=== PATIENT | female | born 1995 | race Caucasian/White ===

== ENCOUNTER 2017-01-31 17:00 | Emergency (ER) | payer MEDICAID, OTHER ==
[2017-01-31] MEDS ORDERED: SODIUM CHLORIDE 0.9% 1,000 ML IV ONE (17:33)
[2017-01-31] MEDS ORDERED: KETOROLAC 60 MG/2 ML VIAL IVP STA (17:49)
[2017-01-31] MEDS ORDERED: DEXAMETHASONE 10 MG/ML VIAL IVP STA (17:49)
[2017-01-31] MEDS ORDERED: KETOROLAC 30 MG/ML VIAL ONE (17:52)
[2017-01-31] MEDS ORDERED: DEXAMETHASONE 10 MG/ML VIAL ONE (17:52)
== END 2017-01-31 19:27 | disposition home or self-care (01) ==
DX: K90.0 Celiac disease (principal); R42 Dizziness and giddiness; J45.909 Unspecified asthma, uncomplicated

== ENCOUNTER 2017-05-22 15:15 | Outpatient (CLI) | payer MEDICAID | END 2017-05-22 15:16 | disposition home or self-care (01) | LOC: LAB.R 15:15 | PROVIDERS: ATTEND Family Medicine | DX: N39.0 Urinary tract infection, site not specified (principal) | CPT/HCPCS: 87086; 87480; 87491; 87510; 87591; 87660 ==

== ENCOUNTER 2017-09-19 12:17 | Emergency (ER) | payer OTHER, MEDICAID ==
--- NOTE | 2017-09-19 14:25 | XRAY Preliminary Report ---
Exam: XR WRIST 3 VIEW RT IMPRESSION: Normal wrist radiography. [facility] SITE ID: [id number]
--- NOTE | 2017-09-19 14:28 | XRAY Report ---
EXAM: RIGHT WRIST RADIOGRAPHY EXAM DATE: 09/19/2017 02:18 PM. CLINICAL HISTORY: Fall and pain . COMPARISON: None. TECHNIQUE: 3 views. FINDINGS: Bones: Normal. No fractures or bone lesions. Joints: Normal. No subluxations. Soft Tissues: Unremarkable. IMPRESSION: Normal wrist radiography. [facility] Referring Provider Line: [phone] SITE ID: [id number]
--- NOTE | 2017-09-19 15:07 | ED Physician Documentation ---
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 has pain with movement of the right wrist.) Review of Systems Constitutional: denies: Fever, Chills Skin: denies: Rash, Lesions Musculoskeletal: reports: Joint pain (right wrist). 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 HEENT: None Psych: None, Depression Musculoskeletal: None Derm: None Other Past Medical History: Celiac disease - Past Surgical History Past Surgical History: Yes General: Colonoscopy, EGD Ortho: Other /PROFESSIONAL HOUSING CONSULTANT: Dilation and currettage - Present Medications Home Medications: Ambulatory Orders Medication Instructions Recorded Confirmed Albuterol Sulf [Ventolin Hfa 01/31/17 Inhaler] Implanon Implant 01/31/17 01/31/17 Triamcinolone 0.1% Oint [Kenalog 01/31/17 01/31/17 0.1% Oint] Sertraline [Zoloft] 25 mg PO DAILY 09/19/17 09/19/17 - Allergies Allergies/Adverse Reactions: Allergies Allergy/AdvReac Type Severity Reaction Status Date / Time gluten Allergy Unknown Unknown Verified 09/19/17 12:36 acetaminophen Allergy Rash Verified 09/19/17 12:36 [From Tylenol-Codeine #3] codeine phosphate * Allergy Rash Verified 09/19/17 12:36 [From Tylenol-Codeine #3] sumatriptan Allergy Unknown Verified 09/19/17 12:36 venlafaxine Allergy Unknown Verified 09/19/17 12:36 Sulfa (Sulfonamide AdvReac Mild Rash Verified 09/19/17 12:36 Antibiotics) - Social History Does the pt smoke?: No Smoking Status: Never smoker Does the pt drink ETOH?: No Does the pt have substance abuse?: No - Immunizations Immunizations are current?: Yes - POLST Patient has POLST: No PD ED PE NORMAL - Vitals Vital signs reviewed: Yes - General General: Alert and oriented X 3, No acute distress, Well developed/nourished - Cardiac Cardiac: Strong equal pulses - Derm Derm: Normal color, Warm and dry, No rash - Extremities Extremities: No deformity, No edema. No: No tenderness to palpate (TTP over the palmar aspect of the right wrist with decreased ROM ) - Neuro Neuro: Alert and oriented X 3, Other (sensation intact to the right hand. ) Results - Vitals Vitals: Vital Signs - 24 hr 09/19/17 12:31 Temperature 37.4 C Heart Rate 82 Respiratory 16 Rate Blood Pressure 123/82 H O2 Saturation 80 L Oxygen O2 Source Room air - Rads (name of study) hand X-ray Radiology: Final report received PD MEDICAL DECISION MAKING - ED course Complexity details: d/w patient ED course: no fracture or dislocation, no bruising. N/V intact. no need for splint. Departure - Departure Disposition: 01 Home, Self Care Clinical Impression: Contusion of wrist, right Condition: Good Instructions: ED RICE Follow-Up: primary, care provider [Other] Comments: Return to the ER for any new or worsening symptoms. Forms: Activity restrictions
[2017-09-19 15:21] VITALS: BP 128/88
== END 2017-09-19 15:20 | disposition home or self-care (01) ==
LOC: ED 12:17
DX: S60.211A Contusion of right wrist, initial encounter (principal); W01.0XXA Fall on same level from slipping, tripping and stumbling without subsequent striking against object, initial encounter; Y92.89 Other specified places as the place of occurrence of the external cause; Y99.8 Other external cause status
CPT/HCPCS: 1040M; 73110; 99282

== ENCOUNTER 2018-01-29 16:43 | Emergency (ER) | payer BC, MEDICAID ==
[2018-01-29] MEDS ORDERED: HYDROcod/ACETAM 5/325 MG TABLET PO STA (17:03)
--- NOTE | 2018-01-29 17:06 | ED Physician Documentation ---
PD HPI ABD PAIN - Stated complaint Stated Complaint: ABD PAIN - Chief complaint Chief Complaint: Abd Pain - History obtained from History obtained from: Patient - History of Present Illness Timing - onset: Other (She has a H/O or recurrent ovarian cysts. Had her usual cyst pain 4 days ago and went away. But recurred today and it is somewhat atypical with no bleeding and slightly worse than normal. It is in the right lower quadrant. 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 HEENT: None Psych: None, Depression Musculoskeletal: None Derm: None - Past Surgical History Past Surgical History: Yes General: Colonoscopy, EGD Ortho: Other /FIELD AUDITOR: Dilation and currettage - Present Medications Home Medications: Ambulatory Orders Medication Instructions Recorded Confirmed Albuterol Sulf [Ventolin Hfa 01/31/17 Inhaler] Implanon Implant 01/31/17 01/31/17 Triamcinolone 0.1% Oint [Kenalog 01/31/17 01/31/17 0.1% Oint] Sertraline [Zoloft] 25 mg PO DAILY 09/19/17 09/19/17 HYDROcod/ACETAM 5/325 [Gabbs 5/325] 1 - 2 ea PO Q6H PRN #15 tablet 01/29/18 - Allergies Allergies/Adverse Reactions: Allergies Allergy/AdvReac Type Severity Reaction Status Date / Time gluten Allergy Unknown Unknown Verified 09/19/17 12:36 acetaminophen Allergy Rash Verified 09/19/17 12:36 [From Tylenol-Codeine #3] codeine phosphate * Allergy Rash Verified 09/19/17 12:36 [From Tylenol-Codeine #3] sumatriptan Allergy Unknown Verified 09/19/17 12:36 venlafaxine Allergy Unknown Verified 09/19/17 12:36 Sulfa (Sulfonamide AdvReac Mild Rash Verified 09/19/17 12:36 Antibiotics) - Social History Does the pt smoke?: No Smoking Status: Never smoker Does the pt drink ETOH?: No Does the pt have substance abuse?: No - Immunizations Immunizations are current?: Yes - POLST Patient has POLST: No PD ED PE NORMAL - Vitals Vital signs reviewed: Yes - General General: Alert and oriented X 3, No acute distress - Cardiac Cardiac: RRR, No murmur - Respiratory Respiratory: No respiratory distress, Clear bilaterally - Abdomen Abdomen: Normal bowel sounds, Soft, Other (Mild right pelvic tenderness without surgical sign or Rovsing sign.) - Neuro Neuro: Alert and oriented X 3, Normal speech - Psych Psych: Normal mood, Normal affect Results - Vitals Vitals: Vital Signs - 24 hr 01/29/18 01/29/18 16:53 19:53 Temperature 36.8 C Heart Rate 72 71 Respiratory 18 17 Rate Blood Pressure 135/90 H 119/84 H O2 Saturation 100 100 Oxygen O2 Source Room air - Labs Labs: Laboratory Tests 01/29/18 01/29/18 01/29/18 17:15 17:15 17:29 WBC 8.9 RBC 4.17 L Hgb 12.1 Hct 35.4 L MCV 84.7 MCH 29.0 MCHC 34.3 RDW 13.2 Plt Count 267 MPV 8.6 Neut # 6.2 Lymph # 1.8 Clarke # 0.6 Eos # 0.2 Baso # 0.0 Absolute Nucleated RBC 0.00 Nucleated RBC % 0.0 Sodium 133 L Potassium 3.5 Chloride 101 Carbon Dioxide 24 Anion Gap 8.0 BUN 6 Creatinine 0.7 Estimated GFR (MDRD) 105 Glucose 99 Calcium 8.7 Total Bilirubin 0.7 AST 23 ALT 17 Alkaline Phosphatase 55 Total Protein 7.2 Albumin 4.1 Globulin 3.1 Albumin/Globulin Ratio 1.3 Lipase 22 Urine Color YELLOW Urine Clarity CLEAR Urine pH 5.5 Ur Specific [place] 1.010 Urine Protein NEGATIVE Urine Glucose (UA) NEGATIVE Urine Ketones NEGATIVE Urine Occult Blood NEGATIVE Urine Nitrite NEGATIVE Urine Bilirubin NEGATIVE Urine Urobilinogen 0.2 (NORMAL) Ur Leukocyte Esterase NEGATIVE Ur Microscopic Review NOT INDICATED Urine Culture Comments NOT INDICATED Urine HCG, Qual NEGATIVE - Rads (name of study) Pelvic Sono Radiology: EMP read contemporaneously (Lg Left ov cyst, no FF) PD MEDICAL DECISION MAKING - ED course ED course: 22-year-old woman with pelvic pain, found to have large recurrent left ovarian cysts, sudden onset and lack of leukocytosis argues against other etiologies. Departure - Departure Disposition: 01 Home, Self Care Clinical Impression: Abdominal pain Qualifiers: Abdominal location: lower abdomen, unspecified Qualified Code(s): R10.30 - Lower abdominal pain, unspecified Cyst of ovary Qualifiers: Laterality: left Qualified Code(s): N83.202 - Unspecified ovarian cyst, left side Condition: Good Record reviewed to determine appropriate education?: Yes Instructions: ED Pelvic Pain [facility] Follow-Up: [facility] [Provider Group] - Within 1 week Prescriptions: HYDROcod/ACETAM 5/325 [Gabbs 5/325] 1 - 2 ea PO Q6H PRN #15 tablet PRN Reason: Pain Comments: Return if worsening or if new symptoms develop, especially fever. Follow-up with the tree chipper listed on the form, next available appointment. Do not drink or drive while taking narcotic pain medication. Note that many narcotic pain relievers also contain Tylenol/acetaminophen. Please ensure that your total dose of acetaminophen from all sources does not exceed 3 g (3000 mg) per day. You may get constipated while on this medication. Take a stool softener such as Colace twice a day while you are on it. Also add an [id number] laxative such as senna or MiraLAX on any day that you do not have a bowel movement. If you received a narcotic pain medication or sedative while in the emergency department, do not drive for the next 24 hours.
[2018-01-29 17:20] LABS: BASOPHILS % (AUTO) 0.4 %; EOSINOPHILS # (AUTO) 0.2 10^3/uL (0.0-0.7); EOSINOPHILS % (AUTO) 1.9 %; HGB - HEMOGLOBIN 12.1 g/dL (12.0-16.0); LYMPHOCYTES # (AUTO) 1.8 10^3/uL (1.5-3.5); LYMPHOCYTES % (AUTO) 20.3 %; MEAN CORPUSCULAR HGB CONC 34.3 g/dL (32.0-36.0); MEAN CORPUSCULAR VOLUME 84.7 fL (81.0-99.0); MEAN PLATELET VOLUME 8.6 fL (7.9-10.8); MONOCYTES # (AUTO) 0.6 10^3/uL (0.0-1.0); MONOCYTES % (AUTO) 7.2 %; NEUTROPHILS # (AUTO) 6.2 10^3/uL (1.5-6.6); NEUTROPHILS % (AUTO) 70.2 %; PLT - PLATELET COUNT 267 10^3/uL (130-450); RED BLOOD COUNT 4.17 10^6/uL (4.20-5.40); RED CELL DISTRIBUTION WIDTH 13.2 % (12.0-15.0); WHITE BLOOD COUNT 8.9 x10^3/uL (4.8-10.8)
[2018-01-29 17:33] LABS: ALBUMIN 4.1 g/dL (3.2-5.5); ALBUMIN/GLOBULIN RATIO 1.3 (1.0-2.2); BILIRUBIN,TOTAL 0.7 mg/dL (0.2-1.0); CALCIUM 8.7 mg/dL (8.5-10.3); CREATININE 0.7 mg/dL (0.4-1.0); TOTAL PROTEIN 7.2 g/dL (6.7-8.2)
[2018-01-29 17:34] LABS: BILIRUBIN,URINE NEGATIVE (NEGATIVE); GLUCOSE, URINE (UA) NEGATIVE (NEGATIVE); KETONES,URINE (UA) NEGATIVE (NEGATIVE); LEUKOCYTE ESTERASE, URINE NEGATIVE (NEGATIVE); NITRITE,URINE NEGATIVE (NEGATIVE); OCCULT BLOOD,URINE NEGATIVE (NEGATIVE); PH,URINE 5.5 PH (5.0-7.5); PROTEIN,URINE NEGATIVE (NEGATIVE); UROBILINOGEN,URINE 0.2 (NORMAL) E.U./dL (NORMAL)
[2018-01-29 17:38] LABS: CLARITY,URINE CLEAR (CLEAR)
[2018-01-29 17:39] LABS: HCG UR QUAL NEGATIVE
--- NOTE | 2018-01-29 19:50 | Ultrasound Preliminary Report ---
Exam: US PELVIC W/TRANSVAG+DOPPLER COMP IMPRESSION: 1. Normal appearance of right ovary. 2. No abnormal fluid in the pelvis. 3. The left ovary remains enlarged and a dominant cyst measuring 6.6 x 2.3 x 5.2 cm has increased in size compared to previous ultrasound of 02/09/2016. [facility] SITE ID: [id number]
--- NOTE | 2018-01-29 19:51 | Ultrasound Report ---
EXAM: PELVIC ULTRASOUND EXAM DATE: 01/29/2018 06:11 PM. CLINICAL HISTORY: RLQ pain. COMPARISON: 02/09/2016. TECHNIQUE: Realtime transabdominal pelvic scan performed to identify the uterus and adnexa and as an overview of other pelvic structures, followed by transvaginal scan to provide greater detail of the u terus and adnexa, with static image documentation. FINDINGS: Uterus: 9.1 x 3.3 x 4.8 cm, volume 75 cc. Anteverted position. Normal overall size and echotexture. Masses: None. Endometrium: 3.2 mm. Normal. Cervix: Unremarkable. Right Ovary: 3.3 x 1.7 x 1.7 cm, volume 4.9 cc. Normal echotexture and blood flow. Left Ovary: 8.1 x 2.6 x 6.0 cm, volume 66 cc. There is a dominant anechoic ovoid cyst in the left ova ry measuring 6.6 x 2.3 x 5.2 cm. On previous ultrasound this measured 5.0 x 2.3 x 2.9 cm. Blood flow present in left ovary on Doppler. Free Fluid: None. Other: None. IMPRESSION: 1. Normal appearance of right ovary. 2. No abnormal fluid in the pelvis. 3. The left ovary remains enlarged and a dominant cyst measuring 6.6 x 2.3 x 5.2 cm has increased in size compared to previous ultrasound of 02/09/2016. [facility] Referring Provider Line: [phone] SITE ID: [id number]
[2018-01-29 19:53] VITALS: BP 119/84
[2018-01-29] MEDS ORDERED: KETOROLAC 60 MG/2 ML VIAL IM STA (19:58)
== END 2018-01-29 20:12 | disposition home or self-care (01) ==
LOC: ED 16:43
DX: R10.30 Lower abdominal pain, unspecified (principal); N83.202 Unspecified ovarian cyst, left side; R10.2 Pelvic and perineal pain
CPT/HCPCS: 36415; 76830; 76856; 80053; 81003; 81025; 83690; 85025; 93975; 96372; 99283; A9270; 81001; 87086

== ENCOUNTER 2018-02-14 09:28 | Outpatient (CLI) | payer BC ==
[2018-02-14 10:05] LABS: HCG UR QUAL NEGATIVE
== END 2018-02-14 09:29 | disposition home or self-care (01) ==
LOC: LAB 09:28
PROVIDERS: ATTEND Physician Assistant Medical
DX: Z01.812 Encounter for preprocedural laboratory examination (principal); N83.202 Unspecified ovarian cyst, left side
CPT/HCPCS: 81025

== ENCOUNTER 2018-02-15 06:25 | Day surgery (SDC) | payer BC ==
--- NOTE | 2018-02-14 12:41 | PREOP HISTORY & PHYSICAL ---
DATE OF SURGERY 02/15/2018 Physician: Yanci Melton DO IDENTIFICATION: A 22-year-old G1, P0-0-1-0. HISTORY OF PRESENT ILLNESS: The patient presents today for her preoperative visit. I had seen the patient initially on 02/08/2018. Her story started on , when she showed up to the Emergency Department at [facility]. The patient had a chief complaint of abdominal pain and a history of recurrent ovarian cyst. She had the usual cyst pain 4 days ago, which went away. The pain recurred and was somewhat atypical, and she denied any abnormal bleeding. Pain is in the right lower quadrant. Workup revealed that on 01/29/2018 the uterus measured 9.1 x 3.3 x 4.8 cm and is anteverted. Endometrium measured 3.2 mm. Right ovary measured 3.3 x 1.7 x 1.7 cm, and the left measured 8.1 x 2.6 x 6.0 cm. There is an anechoic ovoid cyst in the left ovary measuring 6.6 x 2.3 x 5.2 cm. On her previous ultrasound, it measured 5.0 x 2.3 x 2.9 cm. Blood flow present in the left ovary on Doppler. No free fluid. I discussed with the patient on 02/08/2018 her options. Option #1 would be to conservatively watch and wait for spontaneous rupture of the cyst. The caveat of this is that she would need to watch out for hemorrhage precautions, as she may have a hemorrhagic cyst. Option #2 would be for the patient to undergo a laparoscopic ovarian cystectomy. I discussed with the patient the risks, benefits, alternatives, indications, and expectations of both options including discussion for surgery where the risk of hemorrhage, infection, damage to surrounding organs, which may be an inadvertent laceration, cauterization or ligation of the adjacent bladder, intestines, and ureters. I would anticipate preserving the ovary in its entirety; however, an oophorectomy may need to be performed should hemorrhage occur. After the patient's questions were answered to her satisfaction, she verbalized her desire to proceed with a laparoscopic ovarian cystectomy. In addition, she verbalized her desire to remove her Nexplanon that is located in her left arm. Currently the patient, though anxious, denies any nausea, vomiting, fevers or chills. She does have a normal runny stool and empties her bowels about 4 times a day. Currently with the Vicodin that she was taking for pain, she is passing stools every 1-2 days, and it is much more formed. PAST MEDICAL HISTORY 1. Asthma. 2. Depression. 3. Celiac disease. PAST SURGICAL HISTORY 1. Colonoscopy. 2. EGD. 3. In 2015 dilatation and curettage. ALLERGIES 1. SULFA, with which she has a questionable rash. 2. TYLENOL NO. 3, with which she has hives. 3. LEVORA - she has hives. 4. SUMATRIPTAN AND/OR VENLAFAXINE - she has anaphylaxis. MEDICATIONS 1. The Nexplanon placed on 09/07/2015. 2. Triamcinolone cream for hives. 3. Ventolin p.r.n. 4. Fluoxetine 40 mg 1 tablet p.o. daily [facility] [place], [place], is her [facility] of choice. SOCIAL HISTORY: The patient denies any tobacco or illicit drug use; she does consume alcohol on a social basis. The patient is but is currently in a healthy relationship. 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 PAST SURGICAL HISTORY: One therapeutic , but she does want children in the future. PAST GYNECOLOGIC HISTORY: She states that her Pap smears have been within normal limits. The last one is less than a year ago, which was done at [facility], [facility]. She denies any history of sexually transmitted diseases. Her periods are very erratic and range is occurring every 2 to 3 months. She bleeds for 4 days up to 2 weeks. She states that she does have menorrhagia as well as dysmenorrhea. She is using a DivaCup, which she changes twice a day. The pain is so bad when she has her periods that as she is on the ground. Motrin does not help. The pain is described as a sharp, quick, and then achy. These 2 pain types will interchange. She states that she did have a trial of control pills at least for 3 months in the past. FAMILY HISTORY: She denies any female carcinoma. REVIEW OF SYSTEMS: Negative unless otherwise stated. OBJECTIVE VITAL SIGNS: Weight is 192 pounds, height is 66 inches, BMI is 31. Temperature 99.4, blood pressure 110/80. GENERAL: The patient is a well-developed, well-nourished, female, in no distress. She is alert and oriented x3. CARDIOVASCULAR: Rate is regular. No murmurs or rubs. PULMONARY: Lungs are clear to auscultation bilaterally. ABDOMEN: Soft, nontender. No masses or rigidity. LABORATORY DATA: Labs on 01/29/2018 show she has a white count of 8.9, H and H of 12.1 and 35.4, platelets of 267. Potassium 3.5, creatinine 0.7, glucose 99. ASSESSMENT 1. A 22-year-old G1, P0-0-1-0. 2. Persistent left ovarian cyst. 3. Nexplanon that was placed on 09/07/2015. PLAN 1. We will proceed to a laparoscopic left ovarian cystectomy and removal of her Nexplanon that is located in her left upper arm. 2. Prescription for Ativan for the patient, as she is very anxious before surgery. 3. Prescription for ibuprofen and Vicodin for postoperative convalescence. 4. The patient will get a urine hCG. 5. Anticipate using Dermabond for skin closure since the patient does have a LOCAL REACTION TO MEDICAL TAPE. 6. The patient will see me at [facility] in 2 weeks for routine postoperative visit. 7. Anticipate doing workup for PCOS for the patient, given her irregular menses. cc: ELIZABETH Bowman TD: 02/13/2018 13:53 MTDD
[2018-02-15] MEDS ORDERED: LACTATED RINGERS 1,000 ML IV ONE ×2 (06:30→09:41)
[2018-02-15] MEDS ORDERED: CELECOXIB 100 MG CAPSULE PO ONE (06:52)
[2018-02-15 06:54] LABS: HCG UR QUAL NEGATIVE
[2018-02-15] MEDS ORDERED: LIDOCAINE 1%-EPI 1:100000 20 ML MDV ONE (07:18)
[2018-02-15] MEDS ORDERED: LIDOCAINE 1%-EPI 1:100000 20 ML MDV SUBQ ONE ×2 (07:57)
[2018-02-15] MEDS ORDERED: DEXAMETHASONE 4 MG/ML VIAL IVP ONE (08:00)
[2018-02-15] MEDS ORDERED: ACETAMINOPHEN 1,000 MG/100 ML 100 ML IV ONE (08:00)
[2018-02-15] MEDS ORDERED: ROCURONIUM 50 MG/5 ML VIAL IVP ONE (08:00)
[2018-02-15] MEDS ORDERED: GLYCOPYRROLATE 1 MG/5 ML VIAL IVP ONE (08:00)
[2018-02-15] MEDS ORDERED: fentaNYL 100 MCG/2 ML VIAL IVP ONE (08:00)
[2018-02-15] MEDS ORDERED: PROPOFOL 200 MG/20 ML VIAL IVP ONE (08:00)
[2018-02-15] MEDS ORDERED: NEOSTIGMINE 1 MG/1 ML 10 ML MDV IVP ONE (08:00)
[2018-02-15] MEDS ORDERED: MIDAZOLAM 2 MG/2 ML VIAL IVP ONE (08:00)
[2018-02-15] MEDS ORDERED: ONDANSETRON 4 MG/2 ML VIAL IVP ONE (08:00)
[2018-02-15] MEDS ORDERED: LIDOCAINE-MPF 2% 5 ML VIAL IM ONE (08:00)
--- NOTE | 2018-02-15 09:03 | OPERATIVE REPORT ---
Operative Report - Other Other Information/Narrative: Date of Operation: 02/15/2018 Surgeon: Yanci Melton DO FACOG Glove Former: None Literature Teacher: Dyan Carter CRNA Anesthesia: GET Pre-Op Dx: 1. 22 yo 2. Left ovarian cyst 3. Desires removal of Nexplanon Post-Op Dx: 1. 22 yo 2. Left ovarian cyst 3. Desires removal of Nexplanon Procedure: 1. Laparoscopic left ovarian cystectomy 2. Removal of Nexplanon Findings: 1. Left ovarian cyst 2. Nexplanon in-situ 3. Normal uterus, right ovary, fallopian tubes, appendix and liver edge Specimens: 1. Portions of left cyst wall 2. Nexplanon Drains: None EBL: 5 mL Complications: None OP Note Dictation #: [id number]
[2018-02-15] MEDS: fentaNYL 100 MCG/2 ML VIAL ONE ×3 (09:16→09:55)
[2018-02-15] MEDS ORDERED: HYDROcod/ACETAM 5/325 MG TABLET ONE (10:18)
--- NOTE | 2018-02-15 10:19 | OPERATIVE REPORT ---
DATE OF OPERATION: 02/15/2018 PREOPERATIVE DIAGNOSES: 1. A 22-year-old G1, P0-0-1-0. 2. Left ovarian cyst. 3. Desires removal of Nexplanon. POSTOPERATIVE DIAGNOSES: 1. A 22-year-old G1, P0-0-1-0. 2. Left ovarian cyst. 3. Desires removal of Nexplanon. PROCEDURES: 1. Laparoscopic left ovarian cystectomy. 2. Removal of Nexplanon. SURGEON: Yanci Melton DO, FACOG PUMP TENDER: None. AVIATION ORDNANCE OFFICER: Dyan Carter CRNA ANESTHESIA: General endotracheal tube. FINDINGS 1. Left ovarian cyst. 2. Nexplanon in situ. 3. Normal uterus, right ovary, bilateral fallopian tubes, appendix and liver edge. SPECIMENS 1. Portions of left cyst wall. 2. Nexplanon. DRAINS: None. ESTIMATED BLOOD LOSS: 5 mL COMPLICATIONS: None. BRIEF HISTORY: The patient is a patient of [facility] [place] [facility] who has had a symptomatic left ovarian cyst. She was seen at the emergency department and her left ovarian cyst had enlarged to the point of being 6 cm in greatest dimension. I discussed with the patient her options, either to conservatively manage and wait for the cyst to reabsorb by itself or to proceed with surgical excision. After discussing with her the risks, benefits, alternatives indications, expectations of a laparoscopic left ovarian cystectomy, all of her questions were answered to her satisfaction. She verbalized her desire to proceed with surgery. In addition, she verbalized her desire to remove her Nexplanon. It was scheduled to be removed in the fall of this year. Consent forms have been signed. OPERATION IN DETAIL: The patient was identified and consented, taken to the operating room where IV access was already in place. She was then given sequential compression devices, which were turned on. She was then given satisfactory general endotracheal tube anesthesia as per Dyan Carter. The patient was then prepped and draped in normal sterile fashion in the supine position. Her bladder was drained with in and out catheter. Time-out was performed, which correctly identified the patient, site of procedures and the procedures themselves. Antibiotics were not indicated in this case. Two laparoscopic port sites were first identified in the subumbilical fold and then in the right lower quadrant. Both were 5 mm in size. The lower quadrant site was identified by finding the anterior superior iliac spine and then moving 2 fingerbreadths superior and medial to this spot. These port sites were then injected with 1% Xylocaine with epinephrine. Entrance into the abdomen was made directly with a Visiport and trocar. No trauma to the intraabdominal organs was noted. CO2 gas was used to insufflate the abdomen. Under direct visualization of the camera, the port site in the right lower quadrant was then placed. Inspection of the pelvis revealed essentially normal ovaries. The left ovary indeed did have a 6 cm cyst, but the cyst was not tense and was flaccid. There was no obvious defect in the ovary itself. A third 5 mm trocar was placed under direct visualization of the camera after identifying a site 2 fingerbreadths superior and medial to the respective anterior superior iliac spine. Local anesthesia was also used prior to making the stab incision. An incision was made into the ovary and extended so that adequate visualization could be seen to the cyst. Both sharp and blunt dissection of the cyst wall revealed that it was highly adherent to the ovary itself. After removing perhaps 10% of the cyst wall, I felt that this was taking much too long and the cyst was on its way to be reabsorbing. I elected at this point in time to use monopolar cautery just to destroy the cyst wall instead. Hemostasis was noted. At this point in time, the laparoscopic portion of the surgery was completed. The CO2 gas was allowed to egress into the atmosphere. All instruments were removed out of the abdomen and the laparoscopic port sites were then closed with 4-0 Monocryl in a subcuticular fashion. Dermabond was placed on top. Attention was then turned towards the Nexplanon excision. The Nexplanon was palpated in the left upper arm. Xylocaine 1% with epinephrine was used to inject at the distal portion of the Nexplanon tip. A small incision was made in the skin and the Nexplanon was removed. Dermabond was placed on top of the incision. A total of 19 mL of 1% Xylocaine with epinephrine was used for the case. The patient tolerated the procedure well and was taken back to recovery room in stable condition. She will be discharged home later today after postoperative criteria are met. All sponge, lap, and needle counts were correct x2 as per nurse report. She is to see me in 2 weeks at [facility] for routine postop check. She does have prescriptions for Motrin as well as Vicodin for any breakthrough pain that she may have. TD: 02/15/2018 09:40 REILLY
[2018-02-15 10:40] VITALS: BP 135/77
== END 2018-02-15 06:26 | disposition home or self-care (01) ==
LOC: SDS 06:25
PROVIDERS: ATTEND Obstetrics & Gynecology
PROC: 0XP6XYZ Removal of Other Device from Right Upper Extremity, External Approach (ICD-10-PCS; 2018-02-15)
PROC: 0UB14ZZ Excision of Left Ovary, Percutaneous Endoscopic Approach (ICD-10-PCS; principal; 2018-02-15 07:30)
DX: N83.02 Follicular cyst of left ovary (principal); Z30.46 Encounter for surveillance of implantable subdermal contraceptive; J45.909 Unspecified asthma, uncomplicated; F32.9 Major depressive disorder, single episode, unspecified
CPT/HCPCS: 11982; 58662; 81025; 88300; 88305; A9270; J0131; J7120

== ENCOUNTER 2018-02-16 11:34 | Emergency (ER) | payer BC ==
[2018-02-16] MEDS ORDERED: SODIUM CHLORIDE 0.9% 1,000 ML IV ONE (12:03)
[2018-02-16 12:08] LABS: BILIRUBIN,URINE NEGATIVE (NEGATIVE); GLUCOSE, URINE (UA) NEGATIVE (NEGATIVE); KETONES,URINE (UA) NEGATIVE (NEGATIVE); LEUKOCYTE ESTERASE, URINE SMALL (NEGATIVE); NITRITE,URINE NEGATIVE (NEGATIVE); OCCULT BLOOD,URINE MODERATE (NEGATIVE); PROTEIN,URINE NEGATIVE (NEGATIVE); UROBILINOGEN,URINE 0.2 (NORMAL) E.U./dL (NORMAL)
[2018-02-16 12:09] LABS: CLARITY,URINE HAZY (CLEAR)
[2018-02-16 12:10] LABS: HCG UR QUAL NEGATIVE
[2018-02-16 12:17] LABS: BACTERIA,URINE Moderate /HPF (None Seen); SQUAMOUS EPITHELIAL CELL,UR FEW Squamous (<= Few)
[2018-02-16 12:49] LABS: BASOPHILS % (AUTO) 0.4 %; EOSINOPHILS # (AUTO) 0.1 10^3/uL (0.0-0.7); EOSINOPHILS % (AUTO) 1.4 %; HGB - HEMOGLOBIN 11.5 g/dL (12.0-16.0); MEAN CORPUSCULAR HEMOGLOBIN 29.4 pg (27.0-31.0); MEAN CORPUSCULAR VOLUME 86.6 fL (81.0-99.0); MEAN PLATELET VOLUME 8.9 fL (7.9-10.8); MONOCYTES # (AUTO) 0.7 10^3/uL (0.0-1.0); MONOCYTES % (AUTO) 9.2 %; NEUTROPHILS # (AUTO) 4.8 10^3/uL (1.5-6.6); PLT - PLATELET COUNT 257 10^3/uL (130-450); RED CELL DISTRIBUTION WIDTH 13.2 % (12.0-15.0); WHITE BLOOD COUNT 7.6 x10^3/uL (4.8-10.8)
[2018-02-16 12:53] LABS: CALCIUM 8.7 mg/dL (8.5-10.3); CREATININE 0.7 mg/dL (0.4-1.0)
[2018-02-16] MEDS ORDERED: KETOROLAC 60 MG/2 ML VIAL IVP STA (12:59)
[2018-02-16] MEDS ORDERED: cefTRIAXone 1 GM in SODIUM CHLORIDE 0.9% MINIBAG 100 ML IV STA (12:59)
--- NOTE | 2018-02-16 13:03 | ED Physician Documentation ---
History of Present Illness - Stated complaint Stated Complaint: POST OP COMP/UNABLE TO URINATE - Chief complaint Chief Complaint: General - Additonal information Additional information: hx from pt 22 f not preg 1 day post op L ovarian cyst Dr Melton [facility] to ER two concerns 1) after dc yesterday was at home talking on the phone and passed out, per person she was on phone with she was out for approx 30 sec, she hit the floor but does not feel she suffered any injury, no prodrome, no CP or palp, no incont and fully awake 30 sec later so doubt seizure 2) has UTI sx, per op report had in and out cath preop but no UA needed at that time no fever chills had post op abd pain called Dr Melton and directed to the ER Review of Systems Constitutional: reports: Chills (last night not now), Fatigue. denies: Fever Cardiac: denies: Chest pain / pressure, Palpitations Respiratory: denies: Dyspnea GI: reports: Abdominal Pain (post op), Nausea : reports: Dysuria, Vaginal bleeding (was told to expect same port op). denies: Now EGA Musculoskeletal: denies: Neck pain, Back pain Neurologic: reports: Syncope. 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: Dilation and currettage - Present Medications Home Medications: Ambulatory Orders Medication Instructions Recorded Confirmed Triamcinolone 0.1% Oint [Kenalog 1 applic TOP DAILY PRN 01/31/17 02/15/18 0.1% Oint] Albuterol Sulf [Ventolin Hfa 1 - 2 puffs INH Q4HR PRN 02/14/18 02/15/18 Inhaler] Fluoxetine HCl 40 mg PO DAILY 02/14/18 02/15/18 Ibuprofen [Motrin] 600 mg PO Q6H PRN 02/15/18 02/15/18 Lactobacillus Acidophilus 1.5 mg PO DAILY 02/15/18 02/15/18 [Probiotic Acidophilus] Multivitamin [Multiple Vitamins] 1 each PO DAILY 02/15/18 02/15/18 Cephalexin [Keflex] 500 mg PO Q6H #28 capsule 02/16/18 Hydrocodone/Acetaminophen [Vicodin 1 each PO 02/16/18 5-300 mg Tablet] - Allergies Allergies/Adverse Reactions: Allergies Allergy/AdvReac Type Severity Reaction Status Date / Time gluten Allergy Unknown Unknown Verified 02/16/18 11:44 Beef Containing Products Allergy Unknown Verified 02/16/18 11:44 codeine phosphate * Allergy Rash Verified 02/16/18 11:44 [From Tylenol-Codeine #3] Milk Containing Products Allergy Unknown Verified 02/16/18 11:44 sumatriptan Allergy Unknown Verified 02/16/18 11:44 venlafaxine Allergy Unknown Verified 02/16/18 11:44 wheat Allergy Unknown Verified 02/16/18 11:44 Sulfa (Sulfonamide AdvReac Mild Rash Verified 02/16/18 11:44 Antibiotics) - Social History Does the pt smoke?: No Smoking Status: Never smoker Does the pt drink ETOH?: No Does the pt have substance abuse?: No - Immunizations Immunizations are current?: Yes - POLST Patient has POLST: No PD ED PE NORMAL - Vitals Vital signs reviewed: Yes - General General: Alert and oriented X 3 - HEENT HEENT: Atraumatic, PERRL - Neck Neck: No bony TTP - Cardiac Cardiac: RRR - Respiratory Respiratory: No respiratory distress, Clear bilaterally - Abdomen Abdomen: Soft, Other (mod diffuse TTP as expected 1 day post op, surgical sits s erythema or swelling or dc) - Derm Derm: Normal color - Extremities Extremities: No calf tenderness / cord - Neuro Neuro: Alert and oriented X 3 Results - Vitals Vitals: Vital Signs - 24 hr 02/16/18 11:39 Temperature 37.2 C Heart Rate 87 Respiratory 16 Rate Blood Pressure 133/74 H O2 Saturation 100 Oxygen O2 Source Room air - EKG (time done) 1321 Rate: Rate (enter#) (68) Rhythm: NSR [place]: Normal, RAD Ischemia: Normal ST segments Other comments: Other comments (no delta wave, nl intervals) - Labs Labs: Laboratory Tests 02/16/18 02/16/18 02/16/18 12:04 12:21 12:21 WBC 7.6 RBC 3.90 L Hgb 11.5 L Hct 33.8 L MCV 86.6 MCH 29.4 MCHC 34.0 RDW 13.2 Plt Count 257 MPV 8.9 Neut # 4.8 Lymph # 2.0 [place] # 0.7 Eos # 0.1 Baso # 0.0 Absolute Nucleated RBC 0.00 Nucleated RBC % 0.0 Sodium 138 Potassium 3.4 L Chloride 105 Carbon Dioxide 27 Anion Gap 6.0 BUN 11 Creatinine 0.7 Estimated GFR (MDRD) 105 Glucose 78 Calcium 8.7 Urine Color YELLOW Urine Clarity HAZY Urine pH 6.0 Ur Specific [place] >=1.030 H Urine Protein NEGATIVE Urine Glucose (UA) NEGATIVE Urine Ketones NEGATIVE Urine Occult Blood MODERATE H Urine Nitrite NEGATIVE Urine Bilirubin NEGATIVE Urine Urobilinogen 0.2 (NORMAL) Ur Leukocyte Esterase SMALL H Urine RBC 6-10 H Urine WBC >25 H Ur Squamous Epith Cells FEW Squamous Urine Bacteria Moderate H Ur Microscopic Review INDICATED Urine Culture Comments INDICATED Urine HCG, Qual NEGATIVE PD MEDICAL DECISION MAKING - ED course ED course: 1) syncope post op, may have been dehydrated NPO after midnight, may have been 2 /2 gen anesthesia meds, does not sound like a seizure, did not have CP palp etc , no leg pain or swelling or tachycardia or tachypna or hypoxia to suggest a PE , labs fine anemia is baseline so do not think sig blood loss 2) UTI sx, has a UTI, gave rocephin IV, will dc on keflex Departure - Departure Disposition: Home, Self Care Clinical Impression: Syncope Qualifiers: Syncope type: unspecified Qualified Code(s): R55 - Syncope and collapse UTI (urinary tract infection) Qualifiers: Urinary tract infection type: site unspecified Hematuria presence: with hematuria Qualified Code(s): N39.0 - Urinary tract infection, site not specified Condition: Good Instructions: ED Fainting Unkn Cause, ED UTI Cystitis Female Follow-Up: Yanci Melton, [Provider Admit Priv/Credential] - Prescriptions: Cephalexin [Keflex] 500 mg PO Q6H #28 capsule Comments: You do have a bladder infection and so I have prescribed antibiotics I am not sure why you passed out - it does not sound like a seizure, your labs do not indicate blood loss or electrolyte problems, your heart is in a regular rhythm - I suspect it was either due to the strong medications used for anesthesia or from dehydration. Please rest and drink plenty mof fluids Take the antibiotics as prescribed If motrin will work for the pain I recommend avoiding vicodin as that might make you feel dizzy and faint Please follow up with Dr Giorgio diaz for 48 hr Return if worse
[2018-02-16 14:04] VITALS: BP 109/77
== END 2018-02-16 14:05 | disposition home or self-care (01) ==
LOC: ED 11:34
DX: R55 Syncope and collapse (principal); N39.0 Urinary tract infection, site not specified
CPT/HCPCS: 36415; 51798; 80048; 81001; 81003; 81025; 85025; 87077; 87086; 93005; 96361; 96365; 96375; 99283; 99284

== ENCOUNTER 2018-07-02 08:00 | Outpatient (CLI) | payer BC ==
[2018-07-02 20:03] LABS: BILIRUBIN,URINE NEGATIVE (NEGATIVE); GLUCOSE, URINE (UA) NEGATIVE (NEGATIVE); KETONES,URINE (UA) NEGATIVE (NEGATIVE); LEUKOCYTE ESTERASE, URINE TRACE (NEGATIVE); NITRITE,URINE NEGATIVE (NEGATIVE); OCCULT BLOOD,URINE NEGATIVE (NEGATIVE); PROTEIN,URINE NEGATIVE (NEGATIVE); UROBILINOGEN,URINE 1 (NORMAL) E.U./dL (NORMAL)
[2018-07-02 20:11] LABS: CLARITY,URINE HAZY (CLEAR)
[2018-07-02 20:37] LABS: BACTERIA,URINE Moderate /HPF (None Seen); RBC,URINE 0-5 /HPF (0-5); SQUAMOUS EPITHELIAL CELL,UR MOD Squamous (<= Few)
== END 2018-07-02 08:01 ==
LOC: LAB.R 08:00
PROVIDERS: ATTEND Physician Assistant Medical
DX: R30.0 Dysuria (principal)
CPT/HCPCS: 81001; 81003; 87086

== ENCOUNTER 2018-07-20 15:05 | Outpatient (CLI) | payer BC ==
--- NOTE | 2018-07-21 00:54 | Ultrasound Report ---
Reason: ENCOUNTER FOR TEST, RESULT POSITIVE Procedure Date: 07/20/2018 Accession Number: [id number] / [id number] Procedure: US - OB First Trimester CPT Code: FULL RESULT: EXAM: FIRST TRIMESTER OBSTETRIC ULTRASOUND (Less than 11 weeks) EXAM DATE: 07/20/2018 05:01 PM. CLINICAL HISTORY: ENCOUNTER FOR TEST, RESULT POSITIVE. LMP: Unknown. COMPARISONS: None. TECHNIQUE: Transabdominal and transvaginal ultrasound examination with static image documentation. CLINICAL DATES: EGA 8 weeks 1 day with TJ 02/28/2019 based on LMP. ASSESSMENT: Gestational Sac: Single intrauterine. Mean gestational sac diameter: 13.3 mm = 5 weeks 3 days. Embryo: CRL (crown-rump length) 4 mm = 6 weeks 2 days. Cardiac activity: 101 beats per minute. Yolk sac: 3.6 mm. Amniotic fluid: Not accurately assessed at this gestational age. Early placenta: Not visible at this gestational age. Other: No perigestational fluid collection demonstrated. MATERNAL STRUCTURES: Uterus: Anteverted. Unremarkable. Cervix: Closed. Right Ovary/Adnexa: The ovary measures 2.6 x 1.6 x 1.8 cm, volume 3.9 cc. Unremarkable. Left Ovary/Adnexa: The ovary measures 3.2 x 2.5 x 2.6 cm, volume 4.1 cc. Unremarkable. Free Fluid: None. Other: None. IMPRESSION: 1. Single viable intrauterine at EGA 6 weeks 2 days with TJ 03/13/2019 based on crown-rump length, which is discordant with clinical dates. 2. Assigned dating is TJ 8 weeks 1 day based on reported LMP. SHILPI
== END 2018-07-20 15:06 | disposition home or self-care (01) ==
LOC: DI 15:05
PROVIDERS: ATTEND Registered Nurse
DX: Z32.01 Encounter for pregnancy test, result positive (principal); Z3A.01 Less than 8 weeks gestation of pregnancy
CPT/HCPCS: 76801

== ENCOUNTER 2018-08-09 13:49 | Outpatient (CLI) | payer BC ==
[2018-08-09 14:19] LABS: BASOPHILS % (AUTO) 0.4 %; EOSINOPHILS # (AUTO) 0.1 10^3/uL (0.0-0.7); EOSINOPHILS % (AUTO) 1.1 %; HGB - HEMOGLOBIN 12.2 g/dL (12.0-16.0); LYMPHOCYTES # (AUTO) 1.6 10^3/uL (1.5-3.5); MEAN CORPUSCULAR HEMOGLOBIN 29.5 pg (27.0-31.0); MEAN CORPUSCULAR HGB CONC 34.8 g/dL (32.0-36.0); MEAN PLATELET VOLUME 8.8 fL (7.9-10.8); MONOCYTES # (AUTO) 0.3 10^3/uL (0.0-1.0); MONOCYTES % (AUTO) 5.1 %; NEUTROPHILS # (AUTO) 4.5 10^3/uL (1.5-6.6); NEUTROPHILS % (AUTO) 69.4 %; PLT - PLATELET COUNT 289 10^3/uL (130-450); RED BLOOD COUNT 4.14 10^6/uL (4.20-5.40); RED CELL DISTRIBUTION WIDTH 12.5 % (12.0-15.0); WHITE BLOOD COUNT 6.5 x10^3/uL (4.8-10.8)
[2018-08-09 16:14] LABS: BILIRUBIN,URINE NEGATIVE (NEGATIVE); GLUCOSE, URINE (UA) NEGATIVE (NEGATIVE); KETONES,URINE (UA) NEGATIVE (NEGATIVE); LEUKOCYTE ESTERASE, URINE NEGATIVE (NEGATIVE); NITRITE,URINE NEGATIVE (NEGATIVE); OCCULT BLOOD,URINE NEGATIVE (NEGATIVE); PROTEIN,URINE NEGATIVE (NEGATIVE); UROBILINOGEN,URINE 0.2 (NORMAL) E.U./dL (NORMAL)
[2018-08-09 16:45] LABS: BACTERIA,URINE None Seen /HPF (None Seen); CLARITY,URINE CLEAR (CLEAR); RBC,URINE None Seen /HPF (0-5); SQUAMOUS EPITHELIAL CELL,UR MOD Squamous (<= Few)
[2018-08-10 11:26] LABS: HEPATITIS B SURFACE ANTIGEN NON-REACTIVE (NON-REACTIVE); HEPATITIS C ANTIBODY NON-REACTIVE (NON-REACTIVE)
[2018-08-10 12:43] LABS: HIV AG/AB 4TH GEN NON-REACTIVE (NON-REACTIVE)
== END 2018-08-09 13:50 | disposition home or self-care (01) ==
LOC: LAB 13:49
PROVIDERS: ATTEND Obstetrics & Gynecology
DX: Z36.9 Encounter for antenatal screening, unspecified (principal); Z13.79 Encounter for other screening for genetic and chromosomal anomalies
CPT/HCPCS: 36415; 81001; 81599; 85025; 86592; 86762; 86803; 86850; 86900; 86901; 87340; 87389

== ENCOUNTER 2020-05-01 10:50 | Outpatient (CLI) | payer BC | END 2020-05-01 10:51 | disposition home or self-care (01) | LOC: COV 10:50 | PROVIDERS: ATTEND Family Medicine | DX: Z20.828 Contact with and (suspected) exposure to other viral communicable diseases (principal) ==

== ENCOUNTER 2021-03-01 08:00 | Outpatient (CLI) | payer BC ==
[2021-03-01 17:43] LABS: BASOPHILS % (AUTO) 0.6 %; EOSINOPHILS # (AUTO) 0.1 10^3/uL (0.0-0.7); HCT - HEMATOCRIT 37.2 % (37.0-47.0); HGB - HEMOGLOBIN 11.9 g/dL (12.0-16.0); LYMPHOCYTES # (AUTO) 1.8 10^3/uL (1.5-3.5); LYMPHOCYTES % (AUTO) 36.5 %; MEAN CORPUSCULAR HEMOGLOBIN 31.2 pg (27.0-31.0); MEAN CORPUSCULAR VOLUME 97.4 fL (81.0-99.0); MEAN PLATELET VOLUME 12.6 fL (7.9-10.8); MONOCYTES # (AUTO) 0.4 10^3/uL (0.0-1.0); MONOCYTES % (AUTO) 7.4 %; NEUTROPHILS # (AUTO) 2.7 10^3/uL (1.5-6.6); NEUTROPHILS % (AUTO) 53.3 %; PLT - PLATELET COUNT 224 10^3/uL (130-450); RED BLOOD COUNT 3.82 10^6/uL (4.20-5.40); RED CELL DISTRIBUTION WIDTH 10.9 % (12.0-15.0)
[2021-03-01 18:07] LABS: THYROID STIMULATING HORMONE 1.85 uIU/mL (0.34-5.60)
== END 2021-03-01 23:59 | disposition home or self-care (01) ==
LOC: LAB.N 08:00
PROVIDERS: ATTEND Physician Assistant Medical
DX: N92.6 Irregular menstruation, unspecified (principal)
CPT/HCPCS: 36415; 84443; 85025

== ENCOUNTER 2021-03-03 08:00 | Outpatient (CLI) | payer BC | END 2021-03-03 23:59 | disposition home or self-care (01) | LOC: LAB.N 08:00 | PROVIDERS: ATTEND Physician Assistant Medical | DX: R30.0 Dysuria (principal) | CPT/HCPCS: 87077; 87086; 87181 ==